=== PATIENT | female | born 1990 | race Caucasian/White ===

== ENCOUNTER 2017-05-12 20:19 | Emergency (ER) | payer OTHER ==
[~2017-05-12] VITALS: Ht 144.8 cm; Wt 47.2 kg
[~2017-05-12 20:19] MED LIST: HYDROCODON-ACE1 EA10 PO; IBUPROFEN200 M1 PO; KEFLEX500 MG PO; MIRENA1 EACH IY; PERCOCET 5-3251 EACH PO
== END 2017-05-12 20:54 | disposition home or self-care (01) ==
LOC: ED 20:19
DX: S00.33XA Contusion of nose, initial encounter (principal); F17.200 Nicotine dependence, unspecified, uncomplicated; W50.0XXA Accidental hit or strike by another person, initial encounter; Y93.02 Activity, running; Z79.899 Other long term (current) drug therapy; Z91.040 Latex allergy status
CPT/HCPCS: 99282

== ENCOUNTER 2017-09-05 14:57 | Emergency (ER) | payer OTHER ==
[~2017-09-05] VITALS: Ht 149.9 cm; Wt 49.9 kg
== END 2017-09-05 17:11 | disposition home or self-care (01) ==
LOC: ED 14:57
PROC: 0HQFXZZ Repair Right Hand Skin, External Approach (ICD-10-PCS; principal; 2017-09-05)
DX: S61.210A Laceration without foreign body of right index finger without damage to nail, initial encounter (principal); F17.200 Nicotine dependence, unspecified, uncomplicated; Z91.040 Latex allergy status; Z79.899 Other long term (current) drug therapy; W25.XXXA Contact with sharp glass, initial encounter
CPT/HCPCS: 12011; 90471; 90715; 99282

== ENCOUNTER 2017-10-04 14:04 | Emergency (ER) | payer OTHER ==
[~2017-10-04] VITALS: Ht 147.3 cm; Wt 52.2 kg
[2017-10-04] MEDS ORDERED: FLAGYL500 MG PO (16:08)
== END 2017-10-04 16:16 | disposition home or self-care (01) ==
LOC: ED 14:04
DX: N73.9 Female pelvic inflammatory disease, unspecified (principal); F17.200 Nicotine dependence, unspecified, uncomplicated; Z91.040 Latex allergy status
CPT/HCPCS: 80053; 81001; 84703; 85025; 87210; 87491; 87591; 96361; 96374; 99283; J2405; J7030

== ENCOUNTER 2017-10-08 00:39 | Emergency (ER) | payer OTHER ==
[~2017-10-08] VITALS: Ht 147.3 cm; Wt 52.2 kg
[~2017-10-08 00:39] MED LIST changes: +FLAGYL500 MG PO
== END 2017-10-08 03:34 | disposition home or self-care (01) ==
LOC: ED 00:39
DX: O26.851 Spotting complicating pregnancy, first trimester (principal); O99.331 Smoking (tobacco) complicating pregnancy, first trimester; F17.200 Nicotine dependence, unspecified, uncomplicated; Z91.040 Latex allergy status
CPT/HCPCS: 36415; 81001; 84702; 84703; 86900; 86901; 96372; 99283; J2790

== ENCOUNTER 2017-10-26 19:23 | Emergency (ER) | payer OTHER ==
[~2017-10-26] VITALS: Ht 147.3 cm; Wt 52.2 kg
== END 2017-10-26 21:59 | disposition home or self-care (01) ==
LOC: ED 19:23
DX: O20.0 Threatened abortion (principal); O99.331 Smoking (tobacco) complicating pregnancy, first trimester; F17.200 Nicotine dependence, unspecified, uncomplicated; Z91.040 Latex allergy status; Z3A.01 Less than 8 weeks gestation of pregnancy
CPT/HCPCS: 76801; 99284

== ENCOUNTER 2018-06-19 00:37 | Inpatient (IN) | payer OTHER ==
[~2018-06-19] VITALS: Ht 147.3 cm; Wt 62.0 kg
[~2018-06-19 00:37] MED LIST changes: +VITAFOL-OB+DHA1 EACH PO
--- NOTE | 2018-06-19 11:24 | PR ---
[facility] [address] [facility] [place], [place] [address] Signed Progress Notes IP Datetime Report Generated by CPN: 06/19/2018 11:24 PROGRESS NOTES: [id number] Impression: Normal progression of labor Procedures: Artificial ROM Plan: Continue present management VITAL SIGNS: [id number] Vital Signs: Reviewed; Within Normal Limits EXAM: [id number] Dilatation: 4.0 Effacement: 50 Station: -3 Uterine Contractions: every 2-3 minutes MEMBRANES: [id number] Membrane Status: Ruptured Amniotic Fluid Color: Clear ROM Note: AROM without difficulty Comments: Patient getting more uncomfortable, will call for Epidural Fetus A: [id number] FHR Baseline: 130 Variability: Moderate 6-25bpm Accelerations: 15X15 Decelerations: None FHR Category: Category I Presentation: Vertex Comments on Fetus A: No evidence of metabolic acidosis Fetus B: [id number] Signing Physician: Karely Quiroz MD Copies: ~ *Electronically Signed* 06/19/18 1124 KARELY QUIROZ MD PATIENT NAME: WILLY DARLING PROGRESS NOTE DATE OF : [birth year] PHYSICIAN: KARELY QUIROZ MD RPT #: [id number] REPORT IS CONFIDENTIAL AND NOT TO BE RELEASED WITHOUT AUTHORIZATION
--- NOTE | 2018-06-20 10:31 | PR ---
[facility] [address] [place] [address] Signed PP Progress Notes Datetime Report Generated by CPN: 06/20/2018 10:31 SUBJECTIVE: [id number] Pain: Within normal limits Nausea/Vomiting: Denies Vital Signs: [id number] Vital Signs: Reviewed; Within Normal Limits Notable Details: PP Hgb/Hct = 10.5/30.7 EXAM: [id number] Abdomen/Uterus: Normal Lochia: Normal Extremities: Normal IMPRESSION/PLAN/PROCEDURES: [id number] Impression: Normal progression Plan: Discharge Procedures: None Progress Notes: Doing well, wants to go home, but baby has to stay. Signing Physician: Karely Quiroz MD Copies: ~ *Electronically Signed* 06/20/18 1031 KARELY QUIROZ MD PATIENT NAME: WILLY DARLING PROGRESS NOTE DATE OF : [birth year] PHYSICIAN: KARELY QUIROZ MD RPT #: [id number] REPORT IS CONFIDENTIAL AND NOT TO BE RELEASED WITHOUT AUTHORIZATION
== END 2018-06-20 10:24 | disposition home or self-care (01) | DRG 774 ==
LOC: FBC 00:37
PROVIDERS: ADMIT General Practice
PROC: 10E0XZZ Delivery of Products of Conception, External Approach (ICD-10-PCS; principal; 2018-06-19)
PROC: 00HU33Z Insertion of Infusion Device into Spinal Canal, Percutaneous Approach (ICD-10-PCS; 2018-06-19)
PROC: 3E0R3BZ Introduction of Anesthetic Agent into Spinal Canal, Percutaneous Approach (ICD-10-PCS; 2018-06-19)
DX: O32.6XX0 Maternal care for compound presentation, not applicable or unspecified (principal); O72.1 Other immediate postpartum hemorrhage; Z3A.40 40 weeks gestation of pregnancy; Z37.0 Single live birth
CPT/HCPCS: 36415; 83030; 85027; 86850; 86900; 86901; 99406; J2540; J2590; J2790; J7120

== ENCOUNTER 2022-05-13 02:16 | Emergency (ER) | payer OTHER ==
[~2022-05-13] VITALS: Ht 147.3 cm; Wt 52.2 kg
--- OUTSIDE RECORDS SUMMARY | 2022-05-13 02:24 | XMS ---
PreManage Notification: WILLY DARLING Security Manager Placement Events No recent Security Events currently on file CRITERIA MET - Group Notification CARE PROVIDERS There are no care providers on record at this time. Trinh has no Care Guidelines for this patient. Jian VISIT COUNT (12 MO.) 1 HARRY Awan TOTAL 1 NOTE: Visits indicate total known visits. ED/UCC VISIT TRACKING (12 MO.) 05/13/2022 02:18 HARRY Flores OR TYPE: Emergency COMPLAINT: - R EAR PAIN INPATIENT VISIT TRACKING (12 MO.) No inpatient visits to display in this time frame [email or web address]
== END 2022-05-13 03:00 | disposition home or self-care (01) ==
LOC: ED 02:16
DX: H60.93 Unspecified otitis externa, bilateral (principal); F17.200 Nicotine dependence, unspecified, uncomplicated; Z91.040 Latex allergy status
CPT/HCPCS: 99282

== ENCOUNTER 2023-01-04 10:03 | Inpatient (IN) | payer OTHER ==
[~2023-01-04 10:03] MED LIST changes: +ONDANSETRON ODT8 MG PO
--- NOTE | 2023-01-04 15:47 | PR ---
[facility] [address] [facility] [address] [facility] [place], [place] [address] Signed Progress Notes IP Datetime Report Generated by CPN: 01/04/2023 15:47 PROGRESS NOTES: [id number] Impression: Normal Progression of Labor; Reassuring Heart Rate Procedures: Sterile Vag Exam Plan: Augmentation Informed Consent Obtain: Vaginal Delivery VITAL SIGNS: [id number] Vital Signs: Reviewed; Within Normal Limits EXAM: [id number] Dilatation: 5.0 Effacement: 70 Station: -3 Contractions: q 4-5 min MEMBRANES: [id number] Comments: Pt seen and examined. Doing well. Comfortable w/ epidural. Discussed anticipated course of labor. Discussed option for expectant management vs pitocin augmentation and pt desires pitocin. Will start low dose pitocin per protocol. FETUS A: [id number] FHR Baseline: 145 Variability: Moderate 6-25bpm Accelerations: None Decelerations: None FHR Category: Category I Presentation: Vertex Comments on Fetus A: No evidence of metabolic acidosis FETUS B: [id number] Signing Physician: Asuncion Godoy DO Copies: ~ *Electronically Signed* 01/04/23 1547 ASUNCION GODOY (SHEYLA) DO PATIENT NAME: WILLY DARLING PROGRESS NOTE DATE OF : 89 PHYSICIAN: ASUNCION GODOY) DO RPT #: [id number] REPORT IS CONFIDENTIAL AND NOT TO BE RELEASED WITHOUT AUTHORIZATION
--- NOTE | 2023-01-04 18:19 | PR ---
[facility] [address] [place], [place] [address] Signed Progress Notes IP Datetime Report Generated by CPN: 01/04/2023 18:19 PROGRESS NOTES: [id number] Impression: Normal Progression of Labor; Reassuring Heart Rate Procedures: Sterile Vag Exam Plan: Continue Present Management Informed Consent Obtain: Vaginal Delivery VITAL SIGNS: [id number] Vital Signs: Reviewed; Within Normal Limits EXAM: [id number] Dilatation: 7.0 Effacement: 70 Station: -2 Contractions: q 4-5 min MEMBRANES: [id number] Comments: Pt seen and examined. Doing well. Comfortable w/ epidural. Few decelerations that per protocol required pitocin to be discontinued. Reassuirng FHT and contraction pattern. Continue expectant management and expect . Did discussed indications for amnioinfusion if needed. All questions answered. FETUS A: [id number] FHR Baseline: 145 Variability: Moderate 6-25bpm Accelerations: None Decelerations: None FHR Category: Category I Presentation: Vertex Comments on Fetus A: No evidence of metabolic acidosis FETUS B: [id number] Signing Physician: Asuncion Godoy DO Copies: ~ *Electronically Signed* 01/04/23 5296 ASUNCION GODOY (SHEYLA) DO PATIENT NAME: WILLY DARLING PROGRESS NOTE DATE OF : 91 PHYSICIAN: ASUNCION GODOY (JD) DO RPT #: [id number] REPORT IS CONFIDENTIAL AND NOT TO BE RELEASED WITHOUT AUTHORIZATION
--- NOTE | 2023-01-04 19:44 | PR ---
[facility] [address] [place], [place] [address] Signed Progress Notes IP Datetime Report Generated by CPN: 01/04/2023 19:44 PROGRESS NOTES: [id number] Impression: Normal Progression of Labor; Reassuring Heart Rate Procedures: Sterile Vag Exam Plan: Continue Present Management; Anticipate Vaginal Delivery Informed Consent Obtain: Vaginal Delivery VITAL SIGNS: [id number] Vital Signs: Reviewed; Within Normal Limits EXAM: [id number] Dilatation: 9.5 Effacement: 100 Station: 1 Contractions: q 4-5 min MEMBRANES: [id number] Comments: Pt seen and examined. C/O pelvic pressure. On exam, reducible anterior cervix noted and baby low in pelvis. Reviewed anticipated course of delivery and will prepare for . Again reviewed hx pp hemorrhage with patient and with delivery team. All questions answered and preparations made. FETUS A: [id number] FHR Baseline: 145 Variability: Moderate 6-25bpm Accelerations: None Decelerations: None FHR Category: Category I Presentation: Vertex Comments on Fetus A: No evidence of metabolic acidosis FETUS B: [id number] Signing Physician: Asuncion Godoy DO Copies: ~ *Electronically Signed* 01/04/231943 ASUNCION GODOY (SHEYLA) DO PATIENT NAME: WILLY DARLING PROGRESS NOTE DATE OF : 91 PHYSICIAN: ASUNCION GODOY (JD) DO RPT #: [id number] REPORT IS CONFIDENTIAL AND NOT TO BE RELEASED WITHOUT AUTHORIZATION
--- NOTE | 2023-01-05 08:29 | PR ---
[facility] [address] [facility] [place], [place] [address] Signed PP Progress Notes Datetime Report Generated by GRAY: 01/05/2023 08:28 SUBJECTIVE: [id number] Pain: Within Normal Limits Nausea/Vomiting: Denies Vital Signs: [id number] Vital Signs: Reviewed; Within Normal Limits Cardiovascular: Normal Respiratory: Normal Abdomen/Uterus: Normal Lochia: Normal Breasts: Normal Extremities: Normal Progress: Normal Exam Comments: NAD, sitting in bed holding baby RRR No dyspnea/ retractions Abd SNTND, FFBU Ext: trace edema, neg Cristobal's BL IMPRESSION/PLAN/PROCEDURES: [id number] Impression: Normal Progression Plan: Continue Present Management; Discharge Procedures: Rhogam Progress Notes: Pt is a PPD#1 s/p uncomplicated -Progressing well , reports cramping but pain generally well-controlled with ibuprofen -Maternal blood type O neg, baby O positive, rhogam indicated - well, planning mirena IUD for contraception -Discussed PPD: does have history, declines antidepressant therapy at this time Pt requesting DC to home at 24h if possible, outpatient follow-up in [address] Godoy Signing Physician: Kim Samuels DO Copies: ~ *Electronically Signed* 01/05/23827 KIM SAMUELS DO PATIENT NAME: WILLY DARLING PROGRESS NOTE DATE OF : 91 PHYSICIAN: KIM SAMUELS DO RPT #: [id number] REPORT IS CONFIDENTIAL AND NOT TO BE RELEASED WITHOUT AUTHORIZATION
== END 2023-01-05 20:40 | disposition home or self-care (01) | DRG 807 ==
LOC: FBC 10:03
PROVIDERS: ADMIT Obstetrics & Gynecology; ATTEND Obstetrics & Gynecology
PROC: 10E0XZZ Delivery of Products of Conception, External Approach (ICD-10-PCS; principal; 2023-01-04)
PROC: 3E0R3BZ Introduction of Anesthetic Agent into Spinal Canal, Percutaneous Approach (ICD-10-PCS; 2023-01-04)
PROC: 10907ZC Drainage of Amniotic Fluid, Therapeutic from Products of Conception, Via Natural or Artificial Opening (ICD-10-PCS; 2023-01-04)
DX: O77.0 Labor and delivery complicated by meconium in amniotic fluid (principal); Z37.0 Single live birth; Z20.822 Contact with and (suspected) exposure to COVID-19; O99.334 Smoking (tobacco) complicating childbirth; F17.290 Nicotine dependence, other tobacco product, uncomplicated; Z67.41 Type O blood, Rh negative; Z3A.39 39 weeks gestation of pregnancy; Z91.040 Latex allergy status; Z79.899 Other long term (current) drug therapy
CPT/HCPCS: 36415; 83030; 85027; 86850; 86900; 86901; 87502; A9270; C9803; J2590; J2790; J2795; U0003